=== PATIENT | male | born 1980 | race Caucasian/White ===

== ENCOUNTER 2021-04-16 18:37 | Emergency (ER) | payer SELFPAY ==
[2021-04-16 18:56] VITALS: BP 151/96; PULSE 87; RESP 20; TEMP 36.9; O2SAT 98; BMI 32.9
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
[2021-04-16 19:43] VITALS: BP 128/85; PULSE 79; RESP 17; O2SAT 96
[2021-04-16 21:36] VITALS: BP 123/87; PULSE 67; RESP 18; O2SAT 97
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
== END 2021-04-16 21:37 | disposition home or self-care (01) ==
PROVIDERS: Emergency Provider Emergency Medicine
DX: S40.012A Contusion of left shoulder, initial encounter (principal); S39.012A Strain of muscle, fascia and tendon of lower back, initial encounter; V44.5XXA Car driver injured in collision with heavy transport vehicle or bus in traffic accident, initial encounter
CPT/HCPCS: 71250; 73030; 74176; 99282

== ENCOUNTER 2021-04-27 11:39 | Outpatient (CLI) | payer OTHER, SELFPAY ==
--- NOTE | 2021-04-27 11:46 | XR_ITS ---
WS: [id number] XR hand LT min 3V* [id number] REASON FOR EXAM: LEFT HAND PAIN FINDINGS: Joint spaces of the left hand are intact and well preserved. No fracture or other focal bony abnormality. No soft tissue abnormality. XR/XR hand LT min 3V* [id number] IMPRESSION: No significant bone or joint abnormality.
== END 2021-04-27 11:40 | disposition home or self-care (01) ==
PROVIDERS: PCP Nurse Practitioner Family; Visit Provider Nurse Practitioner Family
DX: M79.642 Pain in left hand (principal)
CPT/HCPCS: 73130

== ENCOUNTER 2021-05-30 14:10 | Outpatient (CLI) | payer OTHER, SELFPAY ==
--- NOTE | 2021-05-30 14:30 | MR_ITS ---
WS: [id number] MRI LEFT SHOULDER NONCONTRAST TECHNIQUE: Sagittal T2, coronal T1, T2 and proton density imaging. Axial gradient PDE imaging. CLINICAL INFORMATION: SHOULDER PAIN, LEFT COMPARISON: None. FINDINGS: Mild degenerative arthritis at the AC joint with mild edema. Slight subacromial spurring. Slight impi ngement on the distal supraspinatus with mild tendinopathy. Normal infraspinatus. Normal teres minor. Subscapularis is normal in appearance. Intra-articular biceps tendon demonstrates mild tendinopathy with fluid in the rotator interval. Tiny intrasubstance tear of the intra-articular biceps tendon wit h T2 signal abnormality. Normal biceps tendon in the bicipital groove. Glenoid labrum appears grossly normal. Small volume gle nohumeral joint with synovial thickening along the axillary recess with fluid along the rotator inter paul can be seen with adhesive capsulitis in appropriate clinical setting. MR/MR shoulder LT wo con* [id number] IMPRESSION: 1. Mild degenerative arthritis at the AC joint with mild edema. Slight subacro mial spurring. 2. Tendinopathy distal supraspinatus. Rotator cuff is otherwise normal in appe arance. No high-grade rotator cuff tears. 3. Tendinopathy with tiny partial intrasubstance tear involving the intra-lizzie cular biceps tendon similar to previous. 4. Findings suggestive of adhesive capsulitis in appropriate clinical setting described above.
== END 2021-05-30 14:11 | disposition home or self-care (01) ==
PROVIDERS: PCP Nurse Practitioner Family; Visit Provider Nurse Practitioner Family
DX: M19.012 Primary osteoarthritis, left shoulder (principal)
CPT/HCPCS: 73221

== ENCOUNTER 2021-10-19 12:37 | Outpatient (CLI) | payer SELFPAY ==
--- NOTE | 2021-10-19 12:50 | MR_ITS ---
WS: [id number] MRI LEFT SHOULDER ARTHROGRAM HISTORY: S43.402A - Unspecified sprain of left shoulder joint, prior injury. COMPARISON: 06/24/2018, 05/30/2021. TECHNIQUE: Pre and postcontrast imaging. Gadolinium mixture was injected under fluoroscopy. Coronal T 1 fat sat, sagittal T2 fat sat, coronal T2 fat sat, axial proton density, axial T1 nonfat saturation and ABER sagittal T1 fat sat views are submitted. Prearthrogram: No marrow signal abnormality. Very slightly high riding humeral head. No signal abnorm ality within the rotator cuff. Post arthrogram: Good injection of the joint with contrast. There is no extravasation of contrast fro m the joint into the subacromial or subdeltoid recess. There is a very small amount of increased sign al in the distal subscapularis tendon suggesting there may be insertion site tear with intrasubstance extension. There is no muscle atrophy or edema. There is also a very small cleft within the superior labrum seen best on the postcontrast sequences. The margins are irregular and not sharp as would be expected for normal variant. Findings are suspicious for superior labral tear with no significant ext ension to the anterior labrum. No tear with biceps tendon or dislocation. The middle glenohumeral lig ament is mildly lax. MR/MR shoulder LT wo/w con [id number] IMPRESSION: 1. Short focal tear with fraying involving the superior labrum. Tear is adjace nt to a labral recess. 2. Very small amount of increased signal in the distal subscapularis tendon. S uspect intrasubstance tear.
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
[2021-10-19] MEDS: iohexol 240 mg/mL 50 mL Btl INTRA-ARTI (14:42)
== END 2021-10-19 12:38 | disposition home or self-care (01) ==
LOC: RAD 12:39
PROVIDERS: PCP Nurse Practitioner Family; Visit Provider Orthopaedic Surgery
DX: S43.432A Superior glenoid labrum lesion of left shoulder, initial encounter (principal); X58.XXXA Exposure to other specified factors, initial encounter
CPT/HCPCS: 23350; 73223; 77002

== ENCOUNTER 2021-12-08 11:44 | Day surgery (SDC) | payer SELFPAY ==
[2021-12-07 09:57] VITALS: BMI 32.5
[2021-12-08] VITALS (10 sets, daily range): BP systolic 95–133; BP diastolic 65–88; PULSE 64–92; RESP 11–18; TEMP 36.2–36.8; O2SAT 94–98
[2021-12-08] MEDS: acetaminophen 500 mg Tablet 1000 MG PO (12:46)
[2021-12-08] MEDS: sodium chloride 0.9% 1,000 ML 30 ML IV (12:46)
[2021-12-08] MEDS: midazolam 1 mg/mL INJ 2 mL 2 MG IVP (13:00)
--- NOTE | 2021-12-08 13:12 | P.ANESASSM_ITS ---
Pre-Anesthetic Assessment Height/Weight: Height 1.83 m Weight 108.862 kg Temp Pulse Resp BP Pulse Ox 98.1 F 64 18 128/86 98 12/08/21 12:33 12/08/21 12:33 12/08/21 12:33 12/08/21 12:33 12/08/21 12:33 Preop Diagnosis: Labral tear left shoulder Operation Date: 12/08/21 13:50 Proposed Procedures p Shoulder Arthroscopy 09434/s43.431a(Right) - Kt Bashir MD s SLAP Repair(Right) - Kt Bashir MD Familial anesthetic complications: My bowels take awhile to wake up Was Beta Terrell taken within 24 hours: N/A Was Clonidine taken within 24 hours: N/A Last intake: Intake Last Liquid Date 12/07/21 Last Liquid Time 21:00 Last Solid Date 12/07/21 Last Solid Time 21:00 Social No alcohol and No tobacco Exam alert, oriented x 3, clear to auscultation bilaterally and regular rate & rhythm Airway Mallampati: Class III Dentition: other (missing) Comments: Comments: full white Pulmonary None reported CV/HEM None reported None reported Hepatic None reported GI Gastroesophageal Reflux Disease Metabolic None reported Musc/skel None reported Neuropsych None reported Anesthetic Plan ASA status: 2 Anesthesia: General and Regional (specify below) Risk of > 500 ml blood loss (7ml/kg in children): No Medications/Allergies Home Medications Medication Instructions Recorded Confirmed Last Taken Type esomeprazole magnesium 40 mg 40 mg PO DAILY 06/20/21 12/07/21 Unknown History capsule,delayed release (Nexium) levocetirizine 5 mg tablet (Xyzal) 5 mg PO DAILY 06/20/21 12/07/21 Unknown History Allergies Allergy/AdvReac Type Severity Reaction Status Date / Time adhesive Allergy ALGY-Bliste Verified 12/08/21 12:16 r [facility] Anesthesia Social History Smoking and tobacco status: current every day smoker Data Anesthesia Cardiac Studies: No Data to Display
--- NOTE | 2021-12-08 13:13 | ANES.PROC ---
Anesthesia Procedures Procedure/Date: 12/08/21 Nerve Block ^: Nerve Block 1: Main Anesthesia: general anesthesia Time Out Performed: Yes Consent: requested by attending/covering physician, from patient, risks and benefits reviewed and patient agrees to proceed Nerve block location: interscalene (L) Anesthesia monitors applied: pulse oximetry, EKG, BP cuff and oxygen Nerve block position: supine Anesthetic Used: ropivicaine 0.5% (20) and with decadron (4 mg) Ultrasound used to: visualize and ID interscalene groove Nerve Stimulator Used?: No Interscalene/Femoral BLK: 2 stimuplex 22 g needle used for position and inplane approach and visualize local anesthetic spread Injection: neg aspiration of heme Patient Tolerated Procedure: well Complications: none
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
--- NOTE | 2021-12-08 16:44 | SUR.PHASEI ---
patient into pacu with simple mask in place 10 L O2, sats at 98%. Patient asleep. left arm in sling. bandage dry and intact. fingers to left hand are warm and pink. no pain per faces.
--- NOTE | 2021-12-08 16:58 | SUR.PHASEI ---
patient awake,states no pain. requests to go outside and smoke.
--- NOTE | 2021-12-08 17:00 | SUR.PHASEI ---
patient on room air with sats at 94%.
== END 2021-12-08 17:40 | disposition home or self-care (01) ==
PROVIDERS: PCP Nurse Practitioner Family; Visit Provider Orthopaedic Surgery
PROC: (CPT 29805; principal; 2021-12-08 13:50)
DX: S43.432A Superior glenoid labrum lesion of left shoulder, initial encounter (principal); V89.2XXA Person injured in unspecified motor-vehicle accident, traffic, initial encounter; K21.9 Gastro-esophageal reflux disease without esophagitis; F17.210 Nicotine dependence, cigarettes, uncomplicated
CPT/HCPCS: 29822; 64415; 76942; J0330; J1100; J2250; J2405; J2704; J2795; J3010; J3490; J7030

== ENCOUNTER → 2022-07-12 11:27 | Outpatient (BNVA) | payer SELFPAY | PROVIDERS: PCP Nurse Practitioner Family; Visit Provider Orthopaedic Surgery | DX: M54.2 Cervicalgia (principal) | CPT/HCPCS: 72050 ==

== ENCOUNTER → 2023-10-02 07:49 | Outpatient (BNVA) | payer MEDICAID, SELFPAY | PROVIDERS: PCP Nurse Practitioner Family; Referring Provider Nurse Practitioner Family; Visit Provider Orthopaedic Surgery | DX: M54.2 Cervicalgia (principal) | CPT/HCPCS: 72050 ==

== ENCOUNTER 2023-10-23 08:33 | Outpatient (RCR) | payer MEDICAID, SELFPAY | END 2023-11-13 23:59 | disposition home or self-care (01) | LOC: SPT 08:33 | PROVIDERS: Visit Provider Orthopaedic Surgery | DX: M54.2 Cervicalgia (principal); G89.29 Other chronic pain | CPT/HCPCS: 97161 ==

== ENCOUNTER → 2023-11-13 07:59 | Outpatient (BNVA) | payer MEDICAID, SELFPAY | PROVIDERS: PCP Nurse Practitioner Family; Visit Provider Orthopaedic Surgery | DX: M54.2 Cervicalgia (principal) | CPT/HCPCS: 72050 ==

== ENCOUNTER 2024-05-14 11:30 | Day surgery (SDC) | payer MEDICAID, SELFPAY ==
--- OUTSIDE RECORDS SUMMARY | 2024-04-23 08:25 | XMS_ITS ---
Author Name Unknown Organization [facility] Address [address] [place] [address] Care Team Providers Care Manager Reimbursement Name Role Phone ROB Tripathi APRN, Alfredo Primary Care Provider Ramirez Del Angel [phone] REASON FOR VISIT Chronic neck pain Encounters Encounter Location Date Provider Diagnosis [facility] [place] [address] [place] [id number] 08/21/2023 Ramirez Cardenas Plan Of Treatment No Information Progress Notes * Florentino JAY JrDOB:[birth year] (43 yo M)Acc No.[id number]:08/21/2023 Progress Notes Patient:?Florentino JAY J r Provider:?Ramirez Cardenas MD :1980???Age:42 Y???Sex:Male Trevon e:08/21/2023 Address:[address] [place] [address] [address], [id number] Pcp:Alfredo Tripathi APRN, BC Subjective: * Chief Complaints: * ???1. Chronic neck pain. * Medical History:? Objective: * Vitals:? Assessment: Plan: * Treatment: Care Plan: * Problems:? * Billing Information: * Visit Code:? * Procedure Codes:? * Electronic signature of Jason Cardenas MD on 04/23/2024 at 08:25 AM CDT Sign off status: Pending * Provider:?Ramirez Cardenas MD Date:?2023 Generated for [place] foster/Carlos Alberto/Rayo on:?04/23/2024 08:25 AM CDT
--- OUTSIDE RECORDS SUMMARY | 2024-04-23 08:25 | XMS_ITS ---
Author Name Unknown Organization [facility] Address [address] [place], [place] [id number] Care Team Providers Care Manager Of Distribution Name Role Phone Darlene Tesfaye Primary Care Provider Unav ailable Dominga MIRANDA, Oscar Unavailable [phone] Cam MIRANDA, Ezequiel Fu Unavailable Unav ailable REASON FOR VISIT Update [employer] Demographics Encounters Encounter Location Date Provider Diagnosis [facility] [place] [address] [place], [place] [id number] 04/01/2024 Oscar Orr PLAN OF TREATMENT Next Appt Details Provider Name:Oscar Toussaint son, 06/05/2024 01:30:00 PM, [facility] [place], [place], [phone],
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
--- OUTSIDE RECORDS SUMMARY | 2024-05-14 11:32 | XMS_ITS ---
Author Name Unknown Organization [facility] Address [address] [place], [place] [phone] Care Team Providers Care Primary Education Professor Name Role Phone Darlene Tesfaye Primary Care Provider Unav ailable Dominga MIRANDA, Oscar Unavailable [phone] Cam MIRANDA, Ezequiel Fu Unavailable Unav ailable REASON FOR VISIT Update [employer] Demographics Encounters Encounter Location Date Provider Diagnosis [facility] [address] [place], [place] [id number] 04/01/2024 Oscar Orr Plan Of Treatment Next Appt Details Provider Name:Oscar Guillermoclaudia son, 06/05/2024 01:30:00 PM, [address] [place], [place], [id number], Progress Notes * Florentino JAY JrDOB:[birth year] (43 yo M)Acc No.[id number]:04/01/2024 Patient:?Florentino Jay :1980???Age:43 Y???Sex:Male Address:[address] [place] [address] [address], [place], [address] * true * Date:? Generated for Printi kristin/Carlos Alberto/eTransmitting on:?05/14/2024 11:32 AM CDT
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
--- OUTSIDE RECORDS SUMMARY | 2024-05-14 11:33 | XMS_ITS ---
Author Name Unknown Organization [facility] Address [address] [place] [address] Care Team Providers Care Boot And Shoe Laborer Name Role Phone ROB Tripathi APRN, Alfredo Primary Care Provider Ramirez Del Angel [phone] REASON FOR VISIT Chronic neck pain Encounters Encounter Location Date Provider Diagnosis [facility] [place] [address] [place] [id number] 08/21/2023 Ramirez Cardenas Plan Of Treatment No Information Progress Notes * Florentino JAY JrDOB:[birth year] (43 yo M)Acc No.[id number]:08/21/2023 Progress Notes Patient:?Florentino JAY J r Provider:?Ramirez Cardenas MD :1980???Age:42 Y???Sex:Male Trevon e:08/21/2023 Address:[address] [place] [address] [address] [place], [place] Pcp:Alfredo Tripathi APRN, BC Subjective: * Chief Complaints: * ???1. Chronic neck pain. * Medical History:? Objective: * Vitals:? Assessment: Plan: * Treatment: Care Plan: * Problems:? * Billing Information: * Visit Code:? * Procedure Codes:? * Electronic signature of Jason Cardenas MD on 05/14/2024 at 11:32 AM CDT Sign off status: Pending * Provider:?Ramirez Cardenas MD Date:?2023 Generated for [place] foster/Carlos Alberto/Juanitting on:?05/14/2024 11:32 AM CDT
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
[2024-05-14 12:10] VITALS: BP 137/85; PULSE 77; RESP 16; TEMP 36.6; O2SAT 96; BMI 32.1
[2024-05-14] MEDS: sodium chloride 0.9% 1,000 ML 30 ML IV (12:18)
--- NOTE | 2024-05-14 13:25 | ANES.PREANE2 ---
Pre-Anesthetic Assessment Height/Weight: Height 1.83 m Weight 107.501 kg Temp Pulse Resp BP Pulse Ox O2 Del Method 97.9 F 77 16 137/85 96 Room Air 05/14/24 12:10 05/14/24 12:10 05/14/24 12:10 05/14/24 12:10 05/14/24 12:10 05/14/24 12:10 Preop Diagnosis: screening Operation Date: 05/14/24 12:45 Proposed Procedures p Colonoscopy - 02226, G0105, Z12.11(Not Applicable) - Al Rodriguez, DO Was Beta Terrell taken within 24 hours: N/A Was Clonidine taken within 24 hours: N/A Last intake: Intake Last Liquid Date 05/13/24 Last Liquid Time 23:50 Last Solid Date 05/12/24 Last Solid Time 20:00 Social Tobacco vapes Exam alert and oriented x 3 Airway Submandibular: within normal limits Cervical ROM: within normal limits Mallampati: Class II Dentition: full History/ROS No significant history except as noted Pulmonary None reported CV/HEM None reported None reported Hepatic None reported GI Gastroesophageal Reflux Disease Metabolic None reported Musc/skel Lower Back Pain (limited ROM neck and shoulder pain ) Neuropsych None reported Anesthetic Plan ASA status: 2 Anesthesia: MAC Risk of > 500 ml blood loss (7ml/kg in children): No Medications/Allergies Home Medications Medication Instructions Recorded Confirmed Last Taken Type esomeprazole magnesium 40 mg 40 mg PO DAILY 06/20/21 05/14/24 2 Weeks Ago History capsule,delayed release (Nexium) ~04/30/24 levocetirizine 5 mg tablet (Xyzal) 5 mg PO DAILY PRN Allergy Symptoms 06/20/21 05/14/24 Unknown History hydrocortisone 2.5 % topical cream 1 applic AL QID PRN hemorrhoids 10 03/31/24 05/14/24 1 Week Ago Rx with perineal applicator days #30 grams ~05/07/24 (Anusol-HC) multivit with min-folic 1 tab PO TID 05/13/24 05/14/24 05/12/24 History acid-lutein 500 mcg-250 mcg tablet (Diabetes Health Formula) tizanidine 4 mg tablet 4 mg PO Q6H PRN Spasms 05/13/24 05/14/24 1 Week Ago History ~05/07/24 tramadol 50 mg tablet 50 mg PO BID 05/13/24 05/14/24 05/09/24 History Allergies Allergy/AdvReac Type Severity Reaction Status Date / Time adhesive Allergy Junior Verified 03/31/24 10:33 r Current Medications Generic Name Dose Route Start Last Admin Trade Name Freq PRN Reason Stop Dose Admin Sodium Chloride 1,000 mls @ 30 mls/hr 05/14/24 12:15 05/14/24 12:18 Sodium Chloride 0.9% IV 05/15/24 12:14 30 mls/hr .Q24H BRUCE Administration PFS Anesthesia Social History Smoking and tobacco/nicotine status: never used tobacco/nicotine Alcohol intake: never Substance/Drug Use: never Adopted: No Caregiver/support person: No Lives independently: No Household members: spouse service: No Current occupational status: employed Sexually active: Yes Do you think of yourself as: Straight/Heterosexual Current gender identity: Male Data Anesthesia Cardiac Studies: No Data to Display
--- NOTE | 2024-05-14 13:37 | PM.HP ---
Providers/Chief Complaint Primary Care Provider: Darlene Serrano Chief Complaint: Z12.11 History of Present Illness Florentino Jay Jr is a 43 year old male Review of Systems General: Reports: 10 or more systems reviewed and unremarkable except in HPI and below Medications/Allergies Home Medications Medication Instructions Recorded Confirmed Last Taken Type esomeprazole magnesium 40 mg 40 mg PO DAILY 06/20/21 05/14/24 2 Weeks Ago History capsule,delayed release (Nexium) ~04/30/24 levocetirizine 5 mg tablet (Xyzal) 5 mg PO DAILY PRN Allergy Symptoms 06/20/21 05/14/24 Unknown History hydrocortisone 2.5 % topical cream 1 applic [place] QID PRN hemorrhoids 10 03/31/24 05/14/24 1 Week Ago Rx with perineal applicator days #30 grams ~05/07/24 (Anusol-HC) multivit with min-folic 1 tab PO TID 05/13/24 05/14/24 05/12/24 History acid-lutein 500 mcg-250 mcg tablet (Diabetes Health Formula) tizanidine 4 mg tablet 4 mg PO Q6H PRN Spasms 05/13/24 05/14/24 1 Week Ago History ~05/07/24 tramadol 50 mg tablet 50 mg PO BID 05/13/24 05/14/24 05/09/24 History Allergies Allergy/AdvReac Type Severity Reaction Status Date / Time adhesive Allergy ADITI-Inocenciae Verified 03/31/24 10:33 r PFSH Acute PFSH: Social History Smoking and tobacco/nicotine status: never used tobacco/nicotine Alcohol intake: never Substance/Drug Use: never Adopted: No Caregiver/support person: No Lives independently: No Household members: spouse service: No Current occupational status: employed Sexually active: Yes Do you think of yourself as: Straight/Heterosexual Current gender identity: Male Vitals/I&O/Wt Last Vital Signs Temp 97.9 F 05/14/24 12:10 Pulse 77 05/14/24 12:10 Resp 16 05/14/24 12:10 BP 137/85 05/14/24 12:10 Pulse Ox 96 05/14/24 12:10 O2 Del Method Room Air 05/14/24 12:10 Weight last 48 hrs Weight 237 lb A&P Assessment and plan (1) GI bleed: (2) GERD (gastroesophageal reflux disease): Plan EGD and colonoscopy Attestations Medical Necessity Statement*: Home Coding Level of Care Code Acute Code for Chg Fwd Diagnoses GI bleed K92.2 GERD (gastroesophageal reflux disease) K21.9
[2024-05-14 14:22] VITALS: BP 114/80; PULSE 62; RESP 12; TEMP 36.1; O2SAT 95
[2024-05-14 14:27] VITALS: BP 106/69; PULSE 70; RESP 18; O2SAT 95
[2024-05-14 14:37] VITALS: BP 120/94; PULSE 70; RESP 18; O2SAT 98
--- NOTE | 2024-05-14 14:58 | ANE.PACU2 ---
Inpatient post-anesthesia follow up: Airway intact: Yes Vital signs: Temperature 97.0 F Pulse Rate 70 Respiratory Rate 18 Blood Pressure 120/94 Pulse Oximetry 98 Oxygen Delivery Me thod Room Air Oxygen Flow Rate Fraction of Inspir ed Oxygen Hydration adequate: Yes Nausea and vomiting: No Pain level: 1 Mental status: Baseline
== END 2024-05-14 14:58 | disposition home or self-care (01) ==
PROVIDERS: PCP Nurse Practitioner Family; Visit Provider Surgery
PROC: 0DJD8ZZ Inspection of Lower Intestinal Tract, Via Natural or Artificial Opening Endoscopic (ICD-10-PCS; CPT 45378; principal; 2024-05-14 12:45)
PROC: 0DJ08ZZ Inspection of Upper Intestinal Tract, Via Natural or Artificial Opening Endoscopic (ICD-10-PCS; CPT 43235; 2024-05-14 12:45)
DX: K92.2 Gastrointestinal hemorrhage, unspecified (principal); K21.9 Gastro-esophageal reflux disease without esophagitis; K63.5 Polyp of colon; D12.8 Benign neoplasm of rectum
CPT/HCPCS: 43239; 45385; 88305; J2704; J7030

== ENCOUNTER 2024-06-17 08:15 | Day surgery (SDC) | payer MEDICAID, SELFPAY ==
--- OUTSIDE RECORDS SUMMARY | 2024-06-03 08:45 | XMS_ITS ---
Author Name Unknown Organization [facility] [employer] [facility] Address [address] [place], [place] [address] Care Team Providers Care Automobile Rental Agent Name Role Phone Darlene Tesfaye Primary Care Provider Unav shaji Orr MD, Oscar Unavailable [phone] Cam MIRANDA, Ezequiel Fu Unavailable Unav jasonable Lesley Smith Unavailable [phone] Allergies No Known Allergies REASON FOR VISIT [...] for 28 days ICD-10: G89.29 ([facility] to [facility]) 04/03/2024 Active gabapentin 100 mg 1 [...] Notes Problem High risk drug monitoring status (336558784) correction (current) use of opiate analgesic (Z79.891) Active confirmed Problem Chronic pain (85770594) Other chronic pain (G89.29) Active confirmed Vital Signs Temperature 97.7 degrees Fahrenheit 04/03/20 24 Blood pressure systolic 127 mm Hg 04/03/20 24 Blood pressure diastolic 83 mm Hg 024 Height 72 in 04/03/2024 Weight 248.6 lbs 04/03/2024 Oximetry 96 % 04/03/2024 BMI 33.71 kg/m2 04/03/2024 Encounters Encounter Location Date Provider Diagnosis [facility], [address] [place], [place] [id number] 04/03/2024 Lesley Horton Cervicalgia M54.2 ; Other chronic pain G89.29 ; Spinal stenosis, cervical region M48.02 ; Myalgia of auxiliary muscles, head and neck M79.12 ; Other sleep disorders G47.8 and correction (current) use of opiate analgesic Z79.891 Assessments [...] within four hours of planned sleep. 04/03/2024 correction (current) use of opiate analgesic (ICD-10 - [...] opioids within four hours of planned sleep. 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 * Surgical History:?Appendecto my, performed at [facility] Hernia repair x 2, performed at [facility] and [facility], 2011, 2016Shoulder repair, left, performed at [facility] by Dr. Bashir, 2022 * Hospitalization/Major Diagno [...] completed = 9th. 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 ???Exercise: no. 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 ???Travel: [place] (2001). * Medications:?Takinggabapenti n 100 mg capsule [...] Therapeutic Interventions: * Therapeutic Interventions: ???1.?PDMP ? [facility] : 03/31/2024 1:19 PM - database accessed and reviewed prior to today's visit in anticipation of possible opioid prescribing ? Assessment: * Assessment: 1.?Other chronic pain - G89. 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 [...] opioids within four hours of planned sleep.?? 6.?correction (current) use o f opiate analgesic? Notes: [...] Date:? 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
--- OUTSIDE RECORDS SUMMARY | 2024-06-03 08:46 | XMS_ITS ---
Author Name Unknown Organization [facility] Address [address] [place], [place] [address] Care Team Providers Care Product Coordinator Name Role Phone Darlene Tesfaye Primary Care Provider Unav ailable Dominga MIRANDA, Oscar Unavailable [phone] Cam MIRANDA, Ezequiel Fu Unavailable Unav ailable REASON FOR VISIT Update Kiosk Demographics Encounters Encounter Location Date Provider Diagnosis [facility], [employer] [address] [place], [place] [id number] 04/01/2024 Oscar Orr Plan Of Treatment Next Appt Details Provider Name:Oscar Guillermoclaudia son, 06/05/2024 01:30:00 PM, [address] [place], [place], [phone], Progress Notes * Florentino JAY JrDOB:[birth year] (43 yo M)Acc No.[id number]:04/01/2024 Patient:?Florentino Jay :1980???Age:43 Y???Sex:Male Address:[address] [place] [address] [address], [place], [address] * true * Date:? Generated for Selenei kristin/Carlos Alberto/eTransmitting on:?06/03/2024 08:45 AM BINDER STRIPPER HAND
--- OUTSIDE RECORDS SUMMARY | 2024-06-03 08:47 | XMS_ITS ---
Author Name Unknown Organization [facility] Address [address] [place] [address] Care Team Providers Care Textile Engineer Name Role Phone ROB Tripathi APRN, Alfredo Primary Care Provider Ramirez Del Angel [phone] REASON FOR VISIT Chronic neck pain Encounters Encounter Location Date Provider Diagnosis [facility] [place] [address] [place] [phone] 08/21/2023 Ramirez Cardenas Plan Of Treatment No Information Progress Notes * Florentino JAY JrDOB:[birth year] (43 yo M)Acc No.[id number]:08/21/2023 Progress Notes Patient:?Florentino JAY J r Provider:?Ramirez Cardenas MD :1980???Age:42 Y???Sex:Male Trevon e:08/21/2023 Address:[address] [place] [address] [address] Pcp:Alfredo Tripathi APRN, BC Subjective: * Chief Complaints: * ???1. Chronic neck pain. * Medical History:? Objective: * Vitals:? Assessment: Plan: * Treatment: Forms: Care Plan: * Problems:? * Billing Information: * Visit Code:? * Procedure Codes:? * Electronic signature of Jason Cardenas MD on 06/03/2024 at 08:46 AM PUBLIC RELATIONS INTERN Sign off status: Pending * Provider:?Ramirez Cardenas MD Date:?2023 Generated for [place] foster/Carlos Alberto/Rayo on:?06/03/2024 08:46 AM PUBLIC RELATIONS INTERN
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
[2024-06-17] VITALS (9 sets, daily range): BP systolic 126–170; BP diastolic 67–101; PULSE 69–87; RESP 16–18; TEMP 36.2–36.4; O2SAT 94–100; BMI 32.9
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
--- OUTSIDE RECORDS SUMMARY | 2024-06-17 08:18 | XMS_ITS ---
Author Name Unknown Organization [facility] [employer] Address [address] [place], [place] [id number] Care Team Providers Care J2Ee Java Developer Name Role Phone Darlene Tesfaye Primary Care Provider Unav shaji Orr MD, Oscar Unavailable [phone] Cam MIRANDA, Ezequiel Fu Unavailable Unav jasonable Lesley Smith Unavailable [phone] Allergies No Known Allergies REASON FOR VISIT [...] for 28 days ICD-10: G89.29 (sent to [facility]) 04/03/2024 Active gabapentin 100 mg [...] Notes Problem High risk drug monitoring status ([id number]) detention (current) use of opiate analgesic (Z79.891) Active confirmed Problem Chronic pain (51078248) Other chronic pain (G89.29) Active confirmed Vital Signs Temperature 97.7 degrees Fahrenheit 04/03/20 24 Blood pressure systolic 127 mm Hg 04/03/20 24 Blood pressure diastolic 83 mm Hg 024 Height 72 in 04/03/2024 Weight 248.6 lbs 04/03/2024 Oximetry 96 % 04/03/2024 BMI 33.71 kg/m2 04/03/2024 Encounters Encounter Location Date Provider Diagnosis [facility] [address] [place], [place] [id number] 04/03/2024 Lesley Horton Cervicalgia M54.2 ; Other chronic pain G89.29 ; Spinal stenosis, cervical region M48.02 ; Myalgia of auxiliary muscles, head and neck M79.12 ; Other sleep disorders G47.8 and detention (current) use of opiate analgesic Z79.891 Assessments Encounter Date Diagnosis (ICD Code) Assessment Notes Treatment Notes Treatment Clinical Notes Section Notes 04/03/2024 Cervicalgia (ICD-10 - M54.2) Chronic [...] within four hours of planned sleep. 04/03/2024 detention (current) use of opiate analgesic (ICD-10 - [...] visit. , Reason: Provider Name:Oscar Toussaint son, 07/30/2024 02:30:00 PM, [address] [facility] [address], [place], [place], [id number], Progress Notes * Florentino JAY JrDOB:[birth year] (43 yo M)Acc No.[id number]:04/03/2024 Patient:?Florentino Jay Provider:?RENO Mcgovern :1980???Age:43 Y???Sex:Male Trevon e:04/03/2024 Address:[address] [place], [place] [id number] Pcp:RENO Bustos Subjective: * Chief Complaints: * [...] of a My Pillow.?c/o weakness?in the left cake former.?Denies : numbness and tingling.?Denies : previous surgery:.?headache(s):?patient [...] History:? * Surgical History:?Appendecto my, performed at [facility] Hernia repair x 2, performed at [facility] and [facility], 2012, 2016Shoulder repair, left, performed at [facility] by Dr. Bashir, 2022 * Hospitalization/Major Diagno [...] completed = 9th. 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 ???Exercise: no. ???History of welding/metal work: yes, [...] Therapeutic Interventions: * Therapeutic Interventions: ???1.?PDMP ? [facility] : 03/31/2024 1:19 PM - database accessed and reviewed prior to today's visit in anticipation of possible opioid prescribing ? Assessment: * Assessment: 1.?Other chronic pain - G89. 29 (Primary)?2.?Cervicalgia - M54.2?3.?Spinal stenosis, cervical region - M48.02?4.?Myalgia of auxiliary muscles, head and neck - M79.12?5.?Other sleep disorders - G47.8?6.?detention (current) use of opiate analgesic - Z79.891? [...] opioids within four hours of planned sleep.?? 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 Notes: [...] Date:? 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
--- OUTSIDE RECORDS SUMMARY | 2024-06-17 08:18 | XMS_ITS ---
Author Name Unknown Organization [facility] Address [address] [facility] [place], [place] [id number] Care Team Providers Care Trapper Animal Name Role Phone Darlene Tesfaye Primary Care Provider Unav ailable Dominga MIRANDA, Oscar Unavailable [phone] Cam MIRANDA, Ezequiel Fu Unavailable Unav ailable REASON FOR VISIT Update [employer] Dem[employer] Encounters Encounter Location Date Provider Diagnosis [facility] [employer] [address] [place], [place] [phone] 04/01/2024 Oscar Orr Plan Of Treatment Next Appt Details Provider Name:Oscar Guillermoclaudia son, 07/30/2024 02:30:00 PM, [address] [place], [place], [id number], Progress Notes * Florentino JAY JrDOB:[birth year] (43 yo M)Acc No.[id number]:04/01/2024 Patient:?Florentino Jay :1980???Age:43 Y???Sex:Male Address:[address] [place] [address] [address], [place], [address] * true * Date:? Generated for Selenei kristin/Carlos Alberto/eTransmitting on:?06/17/2024 08:18 AM QUALITY ASSURANCE MANAGER
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
[2024-06-17] MEDS: sodium chloride 0.9% 1,000 ML 30 ML IV (08:34)
--- NOTE | 2024-06-17 08:38 | W.PM.OPSUD ---
Surgery/Procedure H&P Update DATE OF PROCEDURE: June 17, 2024 DATE H&P PERFORMED: 06/02/24 H&P UPDATE INFORMATION: I have reviewed H&P completed within last 30 days, I have examined patient prior to procedure and No changes to prior documentation PLANNED PROCEDURE: Operation Date: 06/17/24 09:40 Proposed Procedures p Hemorrhoidectomy - 03897, 56563, K64.8(Not Applicable) - Al Rodriguez, DO
[2024-06-17 08:45] LABS: Glucose Point of Care 105 mg/dL (70-110)
--- NOTE | 2024-06-17 09:46 | P.ANESASSM_ITS ---
Pre-Anesthetic Assessment Height/Weight: Height 6 ft Weight 243 lb Temp Pulse Resp BP Pulse Ox O2 Del Method 97.1 F L 69 18 129/78 97 Room Air 06/17/24 08:28 06/17/24 08:28 06/17/24 08:28 06/17/24 08:28 06/17/24 08:28 06/17/24 08:29 Preop Diagnosis: Internal hemorrhoids Operation Date: 06/17/24 09:40 Proposed Procedures p Hemorrhoidectomy - 51452, 62482, K64.8(Not Applicable) - Al Rodirguez, DO Was Beta Terrell taken within 24 hours: N/A Was Clonidine taken within 24 hours: N/A Last intake: Intake Last Liquid Date 06/16/24 Last Liquid Time 23:00 Last Solid Date 06/16/24 Last Solid Time 23:00 Social Tobacco and No alcohol Exam alert, oriented x 3, clear to auscultation bilaterally and regular rate & rhythm Airway Submandibular: within normal limits Cervical ROM: Other (Limited neck extension) Mallampati: Class II Dentition: full Comments: Comments: Large white Anesthetic Plan ASA status: 2 Anesthesia: General Other: No prior issues with anesthesia NPO since yesterday History of GERD, controlled on esomeprazole Current smoker Denies any cardiac issues On chronic tramadol for neck/back pain Plan for GETA Medications/Allergies Home Medications Medication Instructions Recorded Confirmed Last Taken Type esomeprazole magnesium 40 mg 40 mg PO DAILY 06/20/21 06/16/24 06/15/24 History capsule,delayed release (Nexium) levocetirizine 5 mg tablet (Xyzal) 5 mg PO DAILY PRN Allergy Symptoms 06/20/21 06/16/24 Unknown History hydrocortisone 2.5 % topical cream 1 applic OR QID PRN hemorrhoids 10 03/31/24 06/16/24 1 Week Ago Rx with perineal applicator days #30 grams ~05/07/24 (Anusol-HC) jlevggzzjxns-ocfxjjcc-lnjvt 1 tab PO TID 05/13/24 06/17/24 06/16/24 History acid-lutein 500 mcg-250 mcg tablet (Diabetes Health Formula) tizanidine 4 mg tablet 4 mg PO Q6H PRN Spasms 05/13/24 06/16/24 06/16/24 History tramadol 50 mg tablet 50 mg PO BID 05/13/24 06/16/24 06/16/24 History Allergies Allergy/AdvReac Type Severity Reaction Status Date / Time adhesive Allergy ROSLYNY-Pernelliste Verified 03/31/24 10:33 r Current Medications Generic Name Dose Route Start Last Admin Trade Name Freq PRN Reason Stop Dose Admin Sodium Chloride 1,000 mls @ 30 mls/hr 06/17/24 08:30 06/17/24 08:34 Sodium Chloride 0.9% IV 06/18/24 08:29 30 mls/hr .Q24H BRUCE Administration PFS Anesthesia Social History Smoking and tobacco/nicotine status: current every day tobacco/nicotine user e- cigarettes E-Cigarette Details: with nicotine Alcohol intake: never Substance/Drug Use: never Adopted: No Caregiver/support person: No Lives independently: No Household members: spouse service: No Current occupational status: employed Sexually active: Yes Do you think of yourself as: Straight/Heterosexual Current gender identity: Male Data Anesthesia Cardiac Studies: No Data to Display
[2024-06-17] MEDS: ceFAZolin 2,000 mg SDV 2000 MG IVP (10:10)
[2024-06-17] MEDS: thrombin 5,000 unit SDV 5000 UNIT XX (10:48)
[2024-06-17] MEDS: BUPivacaine liposome 13.3 mg/mL SDV 20 mL 266 MG INJECTION (10:52)
[2024-06-17] MEDS: BUPivacaine 0.5% INJ 10 mL INJECTION (10:52)
--- NOTE | 2024-06-17 11:01 | PM.OP ---
Operative Report Date of procedure: June 17, 2024 Surgeon: Al Rodriguez DO Brief History: This is a very pleasant 33-year-old gentleman who presented my office with internal hemorrhoids that did not respond to medical treatment. He desired hemorrhoidectomy. The risks and benefits of procedure, including but not limited to, bleeding, infection, recurrence, anal stenosis, incontinence of stool and/or flatus, scar, numbness, pain, were explained to the patient. who is understanding of the risks and wishes to proceed. Procedure: Pre-op diagnosis: Grade 3 internal hemorrhoids Post-op diagnosis: same Procedure done: Hemorrhoidectomy of all 3 hemorrhoidal pillars Implants: Exparel and thrombin-soaked Gelfoam Specimens removed/disposition: Hemorrhoidal pillars Surgeon: Al Rodriguez DO Anesthesia: General and Local Estimated blood loss (mL): 5 Complications: None apparent Procedure: Patient was well in the operative room and general endotracheal ovation was achieved by the department anesthesia. He was then placed into the prone jackknife position. The anus was inspected prepped and draped in usual sterile fashion. A timeout was performed. All present were in agreement. Retractor was used to examine the anus and he had sizable hemorrhoids at all 3 pillars. The largest pillar was the right posterior. All 3 pillars were taken in the same manner. The exterior most edge of the hemorrhoid was slightly ligated with electrocautery. The harmonic scalpel was then used to excise all 3 hemorrhoidal pillars. There was minimal bleeding. Thrombin-soaked Gelfoam was then placed into the anus. Sterile bandage was applied. Patient tolerated procedure well.
[2024-06-17] MEDS: HYDROcodone-acetaminophen 10-325 mg Tablet 1 TAB PO (12:41)
--- NOTE | 2024-06-17 13:10 | ANE.PACU2 ---
Inpatient post-anesthesia follow up: Airway intact: Yes Vital signs: Temperature 97.5 F Pulse Rate 73 Respiratory Rate 18 Blood Pressure 126/77 Pulse Oximetry 94 Oxygen Delivery Me thod Room Air Oxygen Flow Rate 10 Fraction of Inspir ed Oxygen Hydration adequate: Yes Nausea and vomiting: No Pain level: 1 Mental status: Baseline
== END 2024-06-17 13:10 | disposition home or self-care (01) ==
PROVIDERS: PCP Nurse Practitioner Family; Visit Provider Surgery
PROC: (CPT 46260; principal; 2024-06-17 09:40)
DX: K64.8 Other hemorrhoids (principal); K21.9 Gastro-esophageal reflux disease without esophagitis; F17.200 Nicotine dependence, unspecified, uncomplicated; Z79.891 Long term (current) use of opiate analgesic; G89.29 Other chronic pain; M54.2 Cervicalgia; M54.9 Dorsalgia, unspecified
CPT/HCPCS: 46260; 36416; 82962; 88304; C9290; J0330; J0690; J1100; J1171; J2250; J2405; J2704; J3010; J3490; J7030

== ENCOUNTER 2024-09-09 10:16 | Outpatient (CLI) | payer MEDICAID, SELFPAY ==
--- NOTE | 2024-09-09 10:26 | XRR_ITS ---
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 Views: 1 or 2 views. COMPARISON: No relevant prior studies available. FINDINGS: Bones/joints: There is normal bony alignment. No acute fracture is detected. Joint spaces are preserved. Bone density is within normal limits. No significant joint effusion is seen. Soft tissues: Unremarkable. XR/XR elbow RT 2V [id number] IMPRESSION: Unremarkable right elbow radiographs.
== END 2024-09-09 10:17 | disposition home or self-care (01) ==
LOC: RAD 10:23
PROVIDERS: PCP Nurse Practitioner Family; Visit Provider Nurse Practitioner Family
DX: M25.521 Pain in right elbow (principal)
CPT/HCPCS: 73070